=== PATIENT | male | born 1985 | race Caucasian/White ===

== ENCOUNTER → 2018-10-01 | Outpatient (CLI) | payer OTHER ==
--- NOTE | 2018-10-01 12:32 | XR ---
EXAMINATION TYPE: XR sinus DATE OF EXAM: 10/01/2018 CLINICAL HISTORY: Facial pain , headache. TECHNIQUE: Harris, Martinez, and lateral image of the skull are obtained. COMPARISON: None. FINDINGS: There is mild mucosal thickening of the right maxillary sinus. There is minimal rightward n dee septal deviation. Left maxillary sinus, ethmoid sinus, sphenoid sinus, and mastoid air cells lucas ear grossly well aerated on x-ray. Frontal sinuses are also well aerated. Sella turcica is unremarkab le. Nasal bone appears intact. IMPRESSION: Acute on chronic right maxillary sinusitis.
== END | disposition home or self-care (01) ==
LOC: RADXRMAIN 10:50
PROVIDERS: ATTEND Physician Assistant
DX: J01.00 Acute maxillary sinusitis, unspecified (principal); J32.0 Chronic maxillary sinusitis
CPT/HCPCS: 70220